=== PATIENT | female | born 1985 | race Hispanic/Latino ===

== ENCOUNTER 2022-10-28 17:08 | Emergency (ER) | payer BC, OTHER ==
[~2022-10-28] VITALS: Ht 162.6 cm; Wt 59.0 kg
[2022-10-28] MEDS ORDERED: ELIQUIS5 MG PO (19:12)
[2022-10-28] MEDS ORDERED: ENOXAPARIN SOD INJ 40 MG/0.4 ML SYR SC STA (19:12)
[2022-10-28] MEDS ORDERED: ENOXAPARIN SODIUM INJ 100 MG/ML SYR SC ONE (19:37)
[2022-10-28 20:02] VITALS: BP 139/78
== END 2022-10-28 20:02 | disposition home or self-care (01) ==
LOC: FSED 17:12
DX: I82.612 Acute embolism and thrombosis of superficial veins of left upper extremity (principal); C56.9 Malignant neoplasm of unspecified ovary; D64.9 Anemia, unspecified; Z79.899 Other long term (current) drug therapy
CPT/HCPCS: 85025; 85610; 93931; 93971; 99283; J1650